=== PATIENT | male | born 1975 | race African-American/Black ===

== ENCOUNTER 2016-04-02 10:08 | Emergency (ER) | payer SELFPAY ==
[2016-04-02 11:17] VITALS: BP 117/89; TEMP 94.7; O2SAT 94
[2016-04-02] MEDS ORDERED: ONDANSETRON INJ 4 MG/2 ML VIAL IV ONE (11:25)
--- NOTE | 2016-04-02 11:28 | ED.PDOC ---
History of Present Illness - General Chief Complaint: Abdominal Pain Stated Complaint: abd pain Time Seen by Provider: 04/02/16 11:18 Source: patient Exam Limitations: no limitations - History of Present Illness Initial Comments: Patient presents with abdominal pain since yesterday. It is located in the umbilical area with no radiation. Constant but intermittent in intensity. Sudden onset. Has had two previous documented episodes this year but he says it occurs once per month. Worse with movement, better with rest. Has had multiple episodes of N/V/D. Diarrhea is non-bloody. No hx of abdominal surgeries. No other complaints. Timing/Duration: 24 hours Severity: severe Improving Factors: rest Worsening Factors: movement Associated Symptoms: nausea/vomiting Allergies/Adverse Reactions: Allergies NO KNOWN ALLERGY Allergy (Verified 11/26/15 13:14) Home Medications: Ambulatory Orders Ondansetron Tab [Zofran Tab] 4 mg PO Q6HR PRN #7 tab 04/02/16 Review of Systems - Review of Systems Constitutional: States: no symptoms reported EENTM: States: no symptoms reported Respiratory: States: no symptoms reported Cardiology: States: no symptoms reported Gastrointestinal/Abdominal: States: see HPI Genitourinary: States: no symptoms reported Musculoskeletal: States: no symptoms reported Skin: States: no symptoms reported Neurological: States: no symptoms reported Endocrine: States: no symptoms reported Hematologic/Lymphatic: States: no symptoms reported Past Medical History (General) - Patient Medical History Hx Seizures: No Hx Stroke: No Hx Dementia: No Hx Asthma: No Hx of COPD: No Hx Cardiac Disorders: No Hx Congestive Heart Failure: No Hx Pacemaker: No Hx Hypertension: No Hx Thyroid Disease: No Hx Diabetes: No Hx Gastroesophageal Reflux: No Hx Renal Disease: No Hx Cancer: No Hx of HIV: No Hx Hepatitis C: No Hx MRSA: No - Vaccination History Hx Tetanus, Diphtheria Vaccination: No Hx Influenza Vaccination: - unknown Hx Pneumococcal Vaccination: No Immunizations Up to Date: No - Social History Hx Tobacco Use: No Hx Chewing Tobacco Use: No Hx Alcohol Use: No Hx Substance Use: No Hx Substance Use Treatment: No Hx Depression: No Hx Physical Abuse: No Hx Emotional Abuse: No Hx Suspected Abuse: No - Female History Patient is a Female of Child Bearing Age (10 -59 yrs old): No Family Medical History - Family History Mother Family History: Unknown Physical Exam - Physical Exam General Appearance: Obvious distress Ears, Nose, Throat: normal ENT inspection Neck: non-tender, full range of motion, supple Respiratory: lungs clear Cardiovascular/Chest: normal peripheral pulses, regular rate, rhythm Gastrointestinal/Abdominal: normal bowel sounds, rebound, tenderness Back Exam: no CVA tenderness Extremity: normal range of motion Skin Exam: normal color Lymphatic: no adenopathy Progress - Progress Progress: 04/02/16 11:29 Zofran 8 mg IV x one. 04/02/16 15:13 CT showed possible enteritis. Patient's sx resolved with zofran. He was given NS one liter IV bolus. 04/02/16 15:14 04/02/16 17:24 Repeat NS one liter bolus x one. Patient discharged with zofran. Departure - Departure Clinical Impression: Gastroenteritis Disposition: Discharge to Home or Self Care Condition: Good Departure Forms: ED Discharge - Pt. Copy, Patient Portal Self Enrollment Instructions: DI for Abdominal Pain-Adult Diet: resume usual diet Activity: increase activity as tolerated Prescriptions: Ondansetron Tab [Zofran Tab] 4 mg PO Q6HR PRN #7 tab PRN Reason: Nausea Home Medications: Ambulatory Orders Ondansetron Tab [Zofran Tab] 4 mg PO Q6HR PRN #7 tab 04/02/16 Additional Instructions: Increase oral fluids. Take medications as prescribed. Follow up with your regular doctor if symptoms have not resolved in 48 hours.
--- NOTE | 2016-04-02 12:19 | RAD ---
EXAM DESCRIPTION: XR ABDOMEN 2 VIEWS SUPINE ERECT CLINICAL HISTORY: 41 y/o M, abdominal pain COMPARISON: 11/26/2015. TECHNIQUE: Supine and upright images of the abdomen. FINDINGS: There is no intraperitoneal free air. The bowel gas pattern is normal. There are no abnormal calcifications. The bones are unremarkable. IMPRESSION: Nonobstructing bowel gas pattern. Electronically signed by: Hipolito Mosqueda MD 04/02/2016 12:18
--- NOTE | 2016-04-02 14:22 | CT ---
EXAM DESCRIPTION: CT ABDOMEN PELVIS WITH IV CONTRAST CLINICAL HISTORY: 41 y/o M, abdominal pain COMPARISON: None TECHNIQUE: Axial CT images were obtained from the lung bases down to the pubic symphysis after the administration of IV contrast. Sagittal coronal reformats were performed. DLP [id number]. FINDINGS: The lung bases are clear. The liver, gallbladder, pancreas, spleen, and adrenal glands are unremarkable. Both kidneys appear unremarkable. There is no evidence of nephrolithiasis or hydronephrosis. There is no intraperitoneal free air or fluid. There is no lymphadenopathy. The stomach is unremarkable. There is mild thickening of the fluid filled small bowel. The appendix is normal. There is mild hyperemia of the sigmoid colon and rectum. The urinary bladder is unremarkable. There are no lytic or blastic bone lesions IMPRESSION: Mild thickening of the fluid filled small bowel, which is nonspecific but likely related to an enteritis. Normal appendix. Mild hyperemia of the distal sigmoid colon and rectum, likely due to mild inflammation. Electronically signed by: Hipolito Mosqueda MD 04/02/2016 14:20
[2016-04-02] MEDS ORDERED: SODIUM CHLORIDE 0.9% 1000ML 1,000 ML IVS ONE ×2 (14:52→15:41)
[2016-04-02] MEDS ORDERED: ONDANSETRON 4 MG TAB PO ONE (17:24)
== END 2016-04-02 17:49 | disposition home or self-care (01) ==
LOC: ER 10:08
DX: K52.9 Noninfective gastroenteritis and colitis, unspecified (principal)
CPT/HCPCS: 36415; 74010; 74177; 80053; 81001; 82150; 83690; 85025; G0479; J2405; J7030

== ENCOUNTER 2016-05-27 11:39 | Emergency (ER) | payer SELFPAY ==
[2016-05-27] MEDS ORDERED: ONDANSETRON INJ 4 MG/2 ML VIAL IV ONE (12:35)
[2016-05-27] MEDS ORDERED: HYDROmorphone HCL INJ 2 MG/ML VIAL IV ONE (12:35)
[2016-05-27] MEDS ORDERED: SODIUM CHLORIDE 0.9% 1000ML 1,000 ML IVS ONE (12:35)
--- NOTE | 2016-05-27 12:37 | ED.PDOC ---
History of Present Illness - General Chief Complaint: Abdominal Pain Stated Complaint: Abd pain with N/V/D Time Seen by Provider: 05/27/16 12:30 Information Source: patient, RN notes reviewed, Vital Signs reviewed, family Exam Limitations: no limitations - History of Present Illness Initial Comments: Patient comes in with severe abdominal pain with associated N/V/D. Reports that this happens about once a month. Denies eating anything unusual or sick contacts. Abdominal Pain Onset Location: generalized abdomen Pain Radiation: no radiation Quality: severe, cramping Timing/Duration: 7-24 hours Improving Factors: nothing Worsening Factors: movement Associated Symptoms: diarrhea, fever/chills, nausea/vomiting Review of Systems - Review of Systems Constitutional: States: chills. Denies: diaphoresis, fever, malaise EENTM: States: no symptoms reported Respiratory: States: no symptoms reported. Denies: cough, short of breath Cardiology: States: no symptoms reported. Denies: chest pain, palpitations, syncope Gastrointestinal/Abdominal: States: see HPI, abdominal pain, diarrhea, nausea, vomiting Genitourinary: States: no symptoms reported Musculoskeletal: States: no symptoms reported Skin: States: no symptoms reported Neurological: States: no symptoms reported Endocrine: States: no symptoms reported Past Medical History (General) - Patient Medical History Hx Seizures: No Hx Stroke: No Hx Dementia: No Hx Asthma: No Hx of COPD: No Hx Cardiac Disorders: No Hx Congestive Heart Failure: No Hx Pacemaker: No Hx Hypertension: No Hx Thyroid Disease: No Hx Diabetes: No Hx Gastroesophageal Reflux: No Hx Renal Disease: No Hx Cancer: No Hx of HIV: No Hx Hepatitis C: No Hx MRSA: No - Vaccination History Hx Tetanus, Diphtheria Vaccination: No Hx Influenza Vaccination: - unknown Hx Pneumococcal Vaccination: No - Social History Hx Tobacco Use: No Hx Chewing Tobacco Use: No Hx Alcohol Use: No Hx Substance Use: No Hx Substance Use Treatment: No Hx Depression: No Hx Physical Abuse: No Hx Emotional Abuse: No Hx Suspected Abuse: No Family Medical History - Family History Mother Family History: Unknown Physical Exam - Physical Exam General Appearance: Lethargic, Obvious distress, Ill Appearing, Well Developed, Well Groomed, Well Hydrated, Well Nourished, Other - Laying curled on side moaning Neck: non-tender, full range of motion, supple, normal inspection Respiratory: chest non-tender, lungs clear, normal breath sounds, no respiratory distress, no accessory muscle use Cardiovascular/Chest: regular rate, rhythm, no edema, no gallop, no JVD, no murmur Gastrointestinal/Abdominal: distended, guarding, rebound, tenderness Extremity: normal range of motion, non-tender, normal inspection, no pedal edema Neurologic: no motor/sensory deficits, oriented x 3 Skin Exam: normal color, warm/dry Lymphatic: no adenopathy Special Observations: C/O out of proportion Progress - Progress Progress: 05/27/16 13:43 Patient reports pain is much improved. Resting comfortably. 05/27/16 15:30 Discussed normal results with patient. Stressed importance of GI follow up. - Results/Orders Results/Orders: Laboratory Tests 05/27/16 12:35 WBC 16.9 H RBC 5.95 Hgb 16.8 Hct 51.5 MCV 86.6 MCH 28.3 MCHC 32.7 L RDW 14.5 Plt Count 362 MPV 7.6 Absolute Neuts (auto) 15.10 H Absolute Lymphs (auto) 0.70 L Absolute Monos (auto) 1.00 H Absolute Eos (auto) 0.10 Absolute Basos (auto) 0.00 Neutrophils % 89.3 H Lymphocytes % 4.2 L Monocytes % 5.9 Eosinophils % 0.3 L Basophils % 0.3 Sodium 137 Potassium 5.5 H Chloride 104 Carbon Dioxide 24 Anion Gap 14.5 BUN 22 H Creatinine 1.51 H BUN/Creatinine Ratio 14.6 Random Glucose 150 H Serum Osmolality 280.0 Calcium 10.1 Total Bilirubin 0.6 AST 25 ALT 38 Alkaline Phosphatase 63 Serum Total Protein 9.6 H Albumin 5.2 Globulin 4.4 H Albumin/Globulin Ratio 1.2 Amylase 81 Lipase 38 - EKG/XRAY/CT CT Ordered: Yes - abd/pelvis - sm hiatal hernia, o/w nl Departure - Departure Clinical Impression: Abdominal pain, Hiatal hernia, Nausea & vomiting Time of Disposition: 15:31 Disposition: Discharge to Home or Self Care Condition: Poor Departure Forms: ED Discharge - Pt. Copy, Patient Portal Self Enrollment Instructions: DI for Abdominal Pain-Adult Diet: bland diet Activity: increase activity as tolerated Referrals: Randy Harman MD [Consulting Staff] - 1-2 Weeks Prescriptions: Ondansetron [Zofran Odt] 4 mg PO Q6HR PRN #20 tab PRN Reason: Nausea/Vomiting Home Medications: Ambulatory Orders Ondansetron Tab [Zofran Tab] 4 mg PO Q6HR PRN #7 tab 04/02/16 Ondansetron [Zofran Odt] 4 mg PO Q6HR PRN #20 tab 05/27/16
--- NOTE | 2016-05-27 15:23 | CT ---
PROCEDURE: Abdomen/Pelvis w/Contrast HISTORY: Abd pain Indication: Same as above Comparison: None . Technique: CT of the abdomen and pelvis was done with intravenous contrast. Images were obtained from the lung base to the level of the pubic symphysis in axial plane, followed by orthogonal sagittal and coronal reconstruction. Oral contrast was not given for the study. The patient was injected with contrast intravenously, without any documented immediate adverse reactions. FINDINGS: Images through the lung bases do not show any focal infiltrates or pleural effusions. There is a six small hiatal hernia The liver, gallbladder, pancreas, spleen and the bilateral adrenal glands appear unremarkable. The bilateral kidneys enhance with contrast in a normal fashion. The urinary bladder is unremarkable . The bilateral ureters and the bilateral periureteral soft tissues and fat planes are unremarkable. The small bowel appears unremarkable, without any evidence of small bowel obstruction or bowel wall thickening. There is no CT evidence of acute appendicitis, pericecal inflammatory change or ileocecal mesenteric adenitis. The ileocecal junction appears unremarkable. There is no CT evidence of acute colonic diverticulitis or colitis or large bowel obstruction. The splenic and portal veins are of normal caliber, without any filling defects. There is no pathological lymphadenopathy in the retroperitoneum or in the pelvic region. There is no evidence of free fluid or free air in the abdomen or the pelvic region. There is no clinically significant abdominal aortic aneurysm. There is no clinically significant inguinal or ventral hernia. The visualized lumbar spine is unremarkable . The paravertebral soft tissues are unremarkable. The remainder of the pelvic structures are unremarkable. IMPRESSION: Small hiatal hernia. Otherwise unremarkable CT of the abdomen and pelvis. Location of Interpretation: [facility] Electronically signed by: Jorge Alvarado MD 05/27/2016 3:22 PM CDT
[2016-05-28 08:11] VITALS: BP 118/76; TEMP 97; O2SAT 97
== END 2016-05-27 15:48 | disposition home or self-care (01) ==
LOC: ER 11:39
DX: K44.9 Diaphragmatic hernia without obstruction or gangrene (principal); R11.2 Nausea with vomiting, unspecified
CPT/HCPCS: 36415; 74177; 80053; 82150; 83690; 85025; J1170; J2405; J7030

== ENCOUNTER 2016-06-25 19:24 | Emergency (ER) | payer SELFPAY ==
--- NOTE | 2016-06-25 20:10 | ED.PDOC ---
History of Present Illness - General Chief Complaint: Problem Stated Complaint: Left testicle pain and swelling Time Seen by Provider: 06/25/16 19:24 Source: patient Exam Limitations: no limitations - History of Present Illness Initial Comments: Francisco Thomas 41 y/o male with no chronic medical problem stated that his left testis has been swelled up for the last 5 days.Denies history of trauma,no feve /chills no dysuria ,no history of sti. Timing/Duration: other - 5 days Quality: moderate, sharpness, steady Onset Location: scrotal - left Radiation: groin - left Activites at Onset: none Prior abdominal problems: none Sexual intercourse history: single partner Improving Factors: nothing Worsening Factors: nothing Associated Symptoms: denies symptoms Allergies/Adverse Reactions: Allergies NO KNOWN ALLERGY Allergy (Verified 11/26/15 13:14) Home Medications: Ambulatory Orders Acetaminophen W/ Codeine [Tylenol W/ CODEINE #3] 1 ea PO TID PRN #14 06/25/16 Ciprofloxacin [Cipro] 500 mg PO BID #30 ml 06/25/16 NK 06/25/16 Review of Systems - Review of Systems Constitutional: States: no symptoms reported EENTM: States: no symptoms reported Respiratory: States: no symptoms reported Cardiology: States: no symptoms reported Gastrointestinal/Abdominal: States: no symptoms reported Genitourinary: States: see HPI Musculoskeletal: States: no symptoms reported Skin: States: no symptoms reported Neurological: States: no symptoms reported Endocrine: States: no symptoms reported Past Medical History (General) - Patient Medical History Hx Seizures: No Hx Stroke: No Hx Dementia: No Hx Asthma: No Hx of COPD: No Hx Cardiac Disorders: No Hx Congestive Heart Failure: No Hx Pacemaker: No Hx Hypertension: No Hx Thyroid Disease: No Hx Diabetes: No Hx Gastroesophageal Reflux: No Hx Renal Disease: No Hx Cancer: No Hx of HIV: No Hx Hepatitis C: No Hx MRSA: No Surgical History: no surgical history - Vaccination History Hx Tetanus, Diphtheria Vaccination: No - unknown Hx Influenza Vaccination: No Hx Pneumococcal Vaccination: No Immunizations Up to Date: Yes - Social History Hx Tobacco Use: No Hx Chewing Tobacco Use: No Hx Alcohol Use: No Hx Substance Use: No Hx Substance Use Treatment: No Hx Depression: No Feels Threatened In Home Enviroment: No Feels Threatened In a Relationship: No Hx Physical Abuse: No Hx Emotional Abuse: No Hx Suspected Abuse: No Family Medical History - Family History Mother Family History: No Known Living Status: Still Living Physical Exam - Physical Exam General Appearance: Alert, Comfortable, No apparent distress Eyes, Ears, Nose, Throat Exam: PERRL/EOMI, normal ENT inspection, TMs normal, pharynx normal Neck: non-tender, full range of motion, supple, normal inspection Cardiovascular/Respiratory: regular rate, rhythm, no M/R/G, normal peripheral pulses, no JVD Gastrointestinal/Abdominal: normal bowel sounds, non tender, soft, no organomegaly Male Genital Exam: normal genitalia, no hernia, scrotum tenderness (L), testicular tenderness (L) - no nodule noted Back Exam: normal inspection, no CVA tenderness Extremity: normal range of motion, non-tender, normal inspection, no pedal edema Neurologic: no motor/sensory deficits, alert, normal mood/affect, oriented x 3 Skin Exam: normal color, warm/dry Lymphatic: no adenopathy Progress - Results/Orders Results/Orders: Laboratory Results Urine Color Yellow (Yellow) 06/25/16 20:17 Urine Appearance Clear (Clear) 06/25/16 20:17 Urine pH 6.0 (4.5-7.8) 06/25/16 20:17 Ur Specific [place] 1.025 (1.005-1.030) 06/25/16 20:17 Urine Protein Negative mg/dL 06/25/16 20:17 Urine Glucose (UA) Negative mg/dL (Negative) 06/25/16 20:17 Urine Ketones Trace mg/dL (NEGATIVE) 06/25/16 20:17 Urine Blood Negative (Negative) 06/25/16 20:17 Urine Nitrite Negative 06/25/16 20:17 Urine Bilirubin Negative (NEGATIVE) 06/25/16 20:17 Urine Urobilinogen 1.0 mg/dL (0.2-1.0) 06/25/16 20:17 Ur Leukocyte Esterase Negative (Negative) 06/25/16 20:17 Urine RBC 0-1 /hpf 06/25/16 20:17 Urine WBC 1-3 /hpf 06/25/16 20:17 Ur Epithelial Cells 0-1 /hpf 06/25/16 20:17 Urine Bacteria Rare 06/25/16 20:17 Vital Signs - 24 hr 04/16/17 19:24 Temperature 99.4 F Pulse Rate [ 78 pulse ox] Respiratory 16 Rate Blood Pressure 137/90 [left upper arm ] O2 Sat by Pulse 98 Oximetry Departure - Departure Clinical Impression: Orchitis of left testicle Time of Disposition: 21:06 Disposition: Discharge to Home or Self Care Condition: Good Departure Forms: ED Discharge - Pt. Copy, Patient Portal Self Enrollment Prescriptions: Ciprofloxacin [Cipro] 500 mg PO BID #30 ml Acetaminophen W/ Codeine [Tylenol W/ CODEINE #3] 1 ea PO TID PRN #14 PRN Reason: Pain Home Medications: Ambulatory Orders Acetaminophen W/ Codeine [Tylenol W/ CODEINE #3] 1 ea PO TID PRN #14 06/25/16 Ciprofloxacin [Cipro] 500 mg PO BID #30 ml 06/25/16 NK 06/25/16 Additional Instructions: WEAR JOCK SUPPORT UNTIL BETTER;SIGN UP WITH PRIMARY MD TO FOLLOW UP IN ONE WEEK
[2016-06-25] MEDS ORDERED: levoFLOXacin 500 MG TAB PO ONE (20:13)
[2016-06-25] MEDS ORDERED: HYDROcodone 10MG/APAP 325MG 1 EA TAB PO ONE ×2 (21:11)
[2016-06-25 21:15] VITALS: TEMP 99.5; O2SAT 97
[2016-06-25 21:22] VITALS: BP 141/92
== END 2016-06-25 21:21 | disposition home or self-care (01) ==
LOC: ER 19:24
DX: N45.2 Orchitis (principal)

== ENCOUNTER 2018-06-25 13:35 | Emergency (ER) | payer SELFPAY ==
[2018-06-25] MEDS ORDERED: SODIUM CHLORIDE 0.9% 1000ML 1,000 ML IVS ONE ×2 (13:48→15:13)
[2018-06-25] MEDS ORDERED: ONDANSETRON INJ 4 MG/2 ML VIAL IV ONE (13:48)
[2018-06-25] MEDS ORDERED: SODIUM CHLORIDE 0.9% (FLUSH) 10 ML SYG IV PRN (13:48)
[2018-06-25] MEDS ORDERED: KETOROLAC TROMETHAMINE INJ 30 MG/ML VIAL IV ONE (13:48)
--- NOTE | 2018-06-25 13:58 | ED.PDOC ---
History of Present Illness - General Chief Complaint: GI Problem Stated Complaint: NAUSEA AND VOMITING Time Seen by Provider: 06/25/18 13:45 Information Source: patient Exam Limitations: no limitations - History of Present Illness Initial Comments: PT REPORTS ONSET OF CRAMPY ABDOMINAL PAIN ASSOCIATED WITH NAUSEA, VOMITING, AND DIARRHEA APPROXIMATELY 1 HOUR AFTER EATING SOME CHICKEN HE HAD AT HOME THIS MORNING. PT ALSO REPORTS CHILLS AND GENERALIZED WEAKNESS. Abdominal Pain Onset Location: generalized abdomen Quality: cramping, intermittent Timing/Duration: 4-6 hours Improving Factors: nothing Worsening Factors: nothing Associated Symptoms: diarrhea, fever/chills, fatigue, nausea/vomiting Review of Systems - Review of Systems Constitutional: States: chills. Denies: fever EENTM: Denies: nose congestion, throat pain Respiratory: Denies: cough, short of breath Cardiology: Denies: chest pain, palpitations Gastrointestinal/Abdominal: States: see HPI, abdominal pain, diarrhea, nausea, vomiting Genitourinary: Denies: dysuria, frequency Musculoskeletal: Denies: joint pain, joint swelling Skin: Denies: dryness, lesions Neurological: Denies: headache, numbness Endocrine: States: no symptoms reported Hematologic/Lymphatic: States: no symptoms reported Past Medical History (General) - Patient Medical History Hx Seizures: No Hx Stroke: No Hx Dementia: No Hx Asthma: No Hx of COPD: No Hx Cardiac Disorders: No Hx Congestive Heart Failure: No Hx Pacemaker: No Hx Hypertension: No Hx Thyroid Disease: No Hx Diabetes: No Hx Gastroesophageal Reflux: No Hx Renal Disease: No Hx Cancer: No Hx of HIV: No Hx Hepatitis C: No Hx MRSA: No - Vaccination History Hx Tetanus, Diphtheria Vaccination: No - unknown Hx Influenza Vaccination: No Hx Pneumococcal Vaccination: No - Social History Hx Tobacco Use: No Hx Chewing Tobacco Use: No Hx Alcohol Use: No Hx Substance Use: No Hx Substance Use Treatment: No Hx Depression: No Hx Physical Abuse: No Hx Emotional Abuse: No Hx Suspected Abuse: No Family Medical History - Family History Mother Family History: No Known Living Status: Still Living Physical Exam - Physical Exam General Appearance: Alert, Obvious distress, Well Developed, Well Groomed, Well Hydrated Eyes, Ears, Nose, Throat Exam: normal ENT inspection Neck: supple, normal inspection Respiratory: lungs clear, normal breath sounds, no respiratory distress Cardiovascular/Chest: regular rate, rhythm, no edema, no murmur Gastrointestinal/Abdominal: soft, tenderness - DIFFUSE Extremity: non-tender, normal inspection Neurologic: alert, normal mood/affect, oriented x 3 Skin Exam: normal color, warm/dry Progress - Progress Progress: 06/25/18 15:11 PT REPORTS SOME IMPROVEMENT IN PAIN AND NAUSEA AFTER ZOFRAN AND TORADOL. IV FLUIDS INFUSING. PT REQUESTING WATER. ICE CHIPS GIVEN TO START WITH. 06/25/18 15:55 PT FEELING MUCH BETTER. ABLE TO TOLERATE FLUIDS. LABS AND DIAGNOSTICS DISCUSSED. - Results/Orders Results/Orders: Laboratory Tests 06/25/18 06/25/18 14:10 14:10 WBC 12.9 H RBC 5.23 Hgb 14.9 Hct 46.4 MCV 88.8 MCH 28.5 MCHC 32.1 L RDW 14.0 Plt Count 361 MPV 8.0 Absolute Neuts (auto) 11.10 H Absolute Lymphs (auto) 0.60 L Absolute Monos (auto) 1.10 H Absolute Eos (auto) 0.10 Absolute Basos (auto) 0.00 Neutrophils % 85.9 H Lymphocytes % 4.6 L Monocytes % 8.7 Eosinophils % 0.6 L Basophils % 0.2 Sodium 138 Potassium 4.5 Chloride 108 Carbon Dioxide 24 Anion Gap 10.5 L BUN 21 H Creatinine 1.04 BUN/Creatinine Ratio 20.2 H Random Glucose 116 H Serum Osmolality 279.6 Calcium 9.0 Total Bilirubin 0.7 Direct Bilirubin < 0.1 Indirect Bilirubin 0.6 AST 26 ALT 33 Alkaline Phosphatase 54 Serum Total Protein 8.3 H Albumin 4.5 Amylase 77 Lipase 38 Departure - Departure Clinical Impression: Gastroenteritis, Nausea & vomiting, Abdominal tenderness, generalized Time of Disposition: 15:56 Disposition: Discharge to Home or Self Care Condition: Good Departure Forms: ED Discharge - Pt. Copy, Patient Portal Self Enrollment Instructions: DI for Abdominal Pain-Adult, Viral Gastroenteritis, Adult (DC) Diet: bland diet Referrals: [facility] [Provider Group] - 1-5 Days Prescriptions: Dicyclomine HCl [Bentyl] 20 mg PO Q6HR PRN #20 tab PRN Reason: Abdominal Cramping Promethazine Tab [Phenergan Tablet] 25 mg PO Q6H PRN #15 tab PRN Reason: Nausea/Vomiting Home Medications: Ambulatory Orders Dicyclomine HCl [Bentyl] 20 mg PO Q6HR PRN #20 tab 06/25/18 Promethazine Tab [Phenergan Tablet] 25 mg PO Q6H PRN #15 tab 06/25/18
[2018-06-25] MEDS ORDERED: HYOSCYAMINE SULFATE 0.5 MG/ML VIAL IV ONE (15:13)
[2018-06-25 16:07] VITALS: BP 133/64; TEMP 97; O2SAT 92
== END 2018-06-25 16:07 | disposition home or self-care (01) ==
LOC: ER 13:35
DX: K52.9 Noninfective gastroenteritis and colitis, unspecified (principal)
CPT/HCPCS: 36415; 80048; 80076; 82150; 83690; 85025; J1885; J2405; J7030

== ENCOUNTER 2020-02-02 05:51 | Emergency (ER) | payer SELFPAY ==
[2020-02-02] MEDS ORDERED: ONDANSETRON INJ 4 MG/2 ML VIAL IV ONE (06:21)
[2020-02-02] MEDS ORDERED: HYDROmorphone HCL INJ 2 MG/ML VIAL IV ONE (06:21)
[2020-02-02 06:23] VITALS: O2SAT 98
--- NOTE | 2020-02-02 06:25 | ED.PDOC ---
History of Present Illness - General Source: patient - History of Present Illness Initial Comments: CHEST, LEFT SHOULDER AND NECK PAIN, ONSET ABOUT 0030 THIS MORNING, W/ ASSOCIATED SOB, NO DIAPHORESIS, NO N/V. NO BENEFIT W/ ICYHOT, NO ORAL MEDS TRIED, NO HEALTH PROBLEMS, NEGATIVE FAMILY HISTORY. <Francisco Barajas - Last Filed: 02/02/20 06:57> <Da Jim - Last Filed: 02/02/20 10:07> - General Chief Complaint: Chest Pain/PR Time Seen by Provider: 02/02/20 06:20 - History of Present Illness Allergies/Adverse Reactions: Allergies NO KNOWN ALLERGY Allergy (Verified 11/26/15 13:14) Home Medications: Ambulatory Orders Apixaban [Eliquis] 5 mg PO BID #14 tab 02/02/20 predniSONE [Prednisone] 20 mg PO DAILY #5 tab 02/02/20 Review of Systems - Review of Systems Constitutional: States: no symptoms reported EENTM: States: no symptoms reported Respiratory: States: no symptoms reported Cardiology: States: no symptoms reported Gastrointestinal/Abdominal: States: no symptoms reported Genitourinary: States: no symptoms reported Musculoskeletal: States: no symptoms reported Skin: States: no symptoms reported Neurological: States: no symptoms reported Endocrine: States: no symptoms reported Hematologic/Lymphatic: States: no symptoms reported <Francisco Barajas - Last Filed: 02/02/20 06:57> Past Medical History (General) - Patient Medical History Hx Seizures: No Hx Stroke: No Hx Dementia: No Hx Asthma: No Hx of COPD: No Hx Cardiac Disorders: No Hx Congestive Heart Failure: No Hx Pacemaker: No Hx Hypertension: No Hx Thyroid Disease: No Hx Diabetes: No Hx Gastroesophageal Reflux: No Hx Renal Disease: No Hx Cancer: No Hx of HIV: No Hx Hepatitis C: No Hx MRSA: No - Vaccination History Hx Tetanus, Diphtheria Vaccination: No - unknown Hx Influenza Vaccination: No Hx Pneumococcal Vaccination: No - Social History Hx Tobacco Use: No Hx Chewing Tobacco Use: No Hx Alcohol Use: No Hx Substance Use: No Hx Substance Use Treatment: No Hx Depression: No Hx Physical Abuse: No Hx Emotional Abuse: No Hx Suspected Abuse: No <Francisco Barajas - Last Filed: 02/02/20 06:57> Family Medical History - Family History Mother Family History: No Known Living Status: Still Living <Francisco Barajas - Last Filed: 02/02/20 06:57> Physical Exam - Physical Exam General Appearance: Alert, Anxious, Obvious distress, Obese Eyes, Ears, Nose, Throat Exam: PERRL/EOMI, normal ENT inspection Neck: tender lateral, tender midline Respiratory: normal breath sounds, no respiratory distress, other - CHEST DIFFUSELY TENDER TO PALPATION Cardiovascular/Chest: normal peripheral pulses, regular rate, rhythm, no edema, no gallop, no JVD, no murmur Peripheral Pulses: radial,right: 2+, radial,left: 2+ Gastrointestinal/Abdominal: normal bowel sounds, non tender, tenderness - MILD DIFFUSE Rectal Exam: normal exam, normal rectal tone Extremity: normal range of motion, non-tender, pedal edema, slow capillary refill Neurologic: alert, normal mood/affect, oriented x 3 Skin Exam: normal color, warm/dry, cyanosis <Francisco Barajas - Last Filed: 02/02/20 06:57> Progress - Progress Progress: 02/02/20 10:02 The patient is a 45-year-old -[place] male presenting to the emergency room secondary to very atypical left-sided chest wall and trapezius muscle discomfort starting around midnight. 2 sets of cardiac enzymes are negative and EKG and telemetry are reassuring. This is much more consistent with myalgias than any cardiac origin. The patient did have a significantly elevated D-dimer and did have a CT angiogram of the chest. He did have a rapid coronavirus test that was negative. There is a high likelihood this is a false negative however given the presentation. I do believe it is very likely the patient does have coronavirus. He does need to isolate for at least the next 2 to 3 days and get retested 2 to 3 days from now. He is going to be put on prednisone 20 mg daily for the next 5 days for the myalgia and he can take Tylenol as needed as well. He needs to keep himself well-hydrated. Additionally secondary to the elevated D-dimer and the likelihood of coronavirus here, the patient is going to be placed on a week's worth of Eliquis. Again no evidence of blood clot was found on the scan today. ER warnings are given for any significant worsening. No evidence of any pulmonary disease either by symptomatology or by lab work or imaging at this time. da jim [id number] - Results/Orders Results/Orders: Laboratory Tests 02/02/20 02/02/20 02/02/20 06:25 06:33 09:00 WBC 6.7 RBC 4.16 L Hgb 12.0 L Hct 36.0 L MCV 86.5 MCH 29.0 MCHC 33.5 RDW 13.8 Plt Count 306 MPV 7.9 Absolute Neuts (auto) 4.80 Absolute Lymphs (auto) 1.30 Absolute Monos (auto) 0.50 Absolute Eos (auto) 0.20 Absolute Basos (auto) 0.00 Neutrophils % 70.8 Lymphocytes % 19.1 L Monocytes % 7.0 Eosinophils % 2.5 Basophils % 0.6 PT 9.3 INR < 1.00 PTT (SP) 27.4 D-Dimer, Quantitative 2180.0 H* Sodium 133 L Potassium 3.8 Chloride 103 Carbon Dioxide 23 Anion Gap 10.8 L BUN 19 H Creatinine 1.07 BUN/Creatinine Ratio 17.8 Random Glucose 131 H Serum Osmolality 270.4 L Calcium 8.1 L Magnesium 1.9 Creatine Kinase 661 H* 634 H* CK-MB (CK-2) 4.3 3.7 CK-MB (CK-2) % 0.65 Not Reportable Troponin I < 0.02 < 0.02 CTA of the chest is negative for acute pathology. EKG shows normal sinus rhythm at 53 bpm, correction that is sinus bradycardia at 53 bpm. Normal axis. Normal R wave progression. Borderline criteria for LVH. No ST segment or T wave changes indicative of acute ischemia. Normal QT interval. Chest x-ray shows no acute pathology. Rapid coronavirus test is negative. <Da Jim - Last Filed: 02/02/20 10:07> Departure <Francisco Barajas - Last Filed: 02/02/20 06:57> - Departure Diet: regular diet Activity: increase activity as tolerated <Da Jim - Last Filed: 02/02/20 10:07> - Departure Clinical Impression: Elevated d-dimer, Myalgia Chest pain Qualifiers: Chest pain type: chest pain on breathing Qualified Code(s): R07.1 - Chest pain on breathing Disposition: Discharge to Home or Self Care Condition: Fair Departure Forms: ED Discharge - Pt. Copy, Patient Portal Self Enrollment Instructions: DI for Chest Pain, Muscle and Bone Pain (DC) Prescriptions: Apixaban [Eliquis] 5 mg PO BID #14 tab predniSONE [Prednisone] 20 mg PO DAILY #5 tab Home Medications: Ambulatory Orders Apixaban [Eliquis] 5 mg PO BID #14 tab 02/02/20 predniSONE [Prednisone] 20 mg PO DAILY #5 tab 02/02/20 Additional Instructions: The patient is a 45-year-old -[place] male presenting to the emergency room secondary to very atypical left-sided chest wall and trapezius muscle discomfort starting around midnight. 2 sets of cardiac enzymes are negative and EKG and telemetry are reassuring. This is much more consistent with myalgias t [place] any cardiac origin. The patient did have a significantly elevated D-dimer and did have a CT angiogram of the chest. He did have a rapid coronavirus test that was negative. There is a high likelihood this is a false negative however given the presentation. I do believe it is very likely the patient does have coronavirus. He does need to isolate for at least the next 2 to 3 days and get retested 2 to 3 days from now. He is going to be put on prednisone 20 mg daily for the next 5 days for the myalgia and he can take Tylenol as needed as well. He needs to keep himself well-hydrated. Additionally secondary to the elevated D-dimer and the likelihood of coronavirus here, the patient is going to be placed on a week's worth of Eliquis. Again no evidence of blood clot was found on the scan today. ER warnings are given for any significant worsening. No evidence of any pulmonary disease either by symptomatology or by lab work or imaging at this time.
[2020-02-02] MEDS ORDERED: SODIUM CHLORIDE 0.9% 1000ML 1,000 ML IVS ONE (07:25)
--- NOTE | 2020-02-02 07:27 | RAD ---
EXAM: XR Chest, 2 Views CLINICAL HISTORY: The patient is 45 years old and is Male; CHEST PAIN TECHNIQUE: Two views of the chest. COMPARISON: No relevant prior studies available. FINDINGS: Lungs: Unremarkable. No consolidation. Pleural space: Unremarkable. No pneumothorax. Heart: Unremarkable. No cardiomegaly. Mediastinum: Unremarkable. Bones/joints: No acute fracture visualized. Upper abdomen: No free air in the visualized upper abdomen. IMPRESSION: No acute cardiopulmonary process identified. Electronically signed by: Malathi Sapp MD 02/02/2020 7:25 AM [facility]
[2020-02-02] MEDS ORDERED: SODIUM CHLORIDE 0.9% 1000ML 1,000 ML ONE (07:40)
[2020-02-02] MEDS ORDERED: predniSONE 20 MG TAB PO ONE (08:08)
[2020-02-02] MEDS ORDERED: KETOROLAC TROMETHAMINE INJ 30 MG/ML VIAL IV ONE (08:08)
--- NOTE | 2020-02-02 08:41 | CT ---
EXAM DESCRIPTION: CTA Chest CLINICAL HISTORY: shannon ddimer, chest pain COMPARISON: None available TECHNIQUE: Chest CTA was performed with IV contrast including MIP and/or Three-D reconstructed images. This exam was performed according to our departmental dose-optimization program, which includes automated exposure control, adjustment of the mA and/or kV according to patient size and/or use of iterative reconstruction technique. FINDINGS: No pulmonary embolus. No thoracic aortic aneurysm or dissection. Visualized portions of the thyroid and thoracic inlet are unremarkable. No mediastinal or hilar adenopathy. No pleural or pericardial effusion. No esophageal wall thickening. The central airways are clear. Mild dependent atelectasis in both lungs, no airspace consolidation or lung mass. Visualized portions of the upper abdomen are unremarkable for pulmonary arterial technique. No fracture or pneumothorax.Two small, benign-appearing lytic lesions laterally in the right sixth rib. No axillary adenopathy or chest wall lesion. IMPRESSION: No pulmonary embolus or additional intrathoracic abnormality to explain chest pain. Electronically signed by: Сергей Mcqueen MD 02/02/2020 8:40 AM INSTRUCTIONAL MANAGER
[2020-02-02 10:33] VITALS: BP 139/88; TEMP 97.8
== END 2020-02-02 10:33 | disposition home or self-care (01) ==
LOC: ER 05:51
DX: R07.1 Chest pain on breathing (principal); R79.89 Other specified abnormal findings of blood chemistry; M79.10 Myalgia, unspecified site; M25.512 Pain in left shoulder; R06.02 Shortness of breath; M54.2 Cervicalgia; R00.1 Bradycardia, unspecified; Z20.828 Contact with and (suspected) exposure to other viral communicable diseases
CPT/HCPCS: 36415; 71046; 71275; 80048; 82550; 82553; 84484; 85025; 85379; 85610; 85730; 87635; 93005; J1170; J1885; J2405; J7030; J7512

== ENCOUNTER 2020-02-03 07:40 | Emergency (ER) | payer SELFPAY ==
[2020-02-03 07:55] VITALS: TEMP 97.1
[2020-02-03] MEDS ORDERED: KETOROLAC TROMETHAMINE INJ 30 MG/ML VIAL IV ONE (08:13)
[2020-02-03] MEDS ORDERED: DEXAMETHASONE INJ 10 MG/ML VIAL IV ONE (08:13)
--- NOTE | 2020-02-03 08:33 | ED.PDOC ---
History of Present Illness - General Chief Complaint: Cardiovascular Problem Stated Complaint: chest wall pain Time Seen by Provider: 02/03/20 07:59 Source: patient, RN notes reviewed, Vital Signs reviewed, old records - from visit on 02/02/20 Exam Limitations: no limitations - History of Present Illness Initial Comments: Patient is a 45-year-old black male who presents with complaints of chest pain. He was seen here yesterday with similar complaints and had a complete work-up which was negative for cardiac enzymes, PE or Covid. Patient did have elevated D-dimer at that time. Patient states the pain is sharp and stabbing in nature. It is worse with deep inspiration or palpation. It is worse with movement. Nothing seems to make it better. The pain is constant. The intensity is severe. Patient was given a prescription for prednisone and Eliquis when he was here yesterday, but he did not fill it. Patient claims that his prescriptions were not called in, but in actuality he was given a prescription to fill himself. Patient states that he has shortness of breath with the chest pain. He denies any nausea, vomiting or diaphoresis. Patient denies any fevers or cough. Timing/Duration: getting worse, other - 2 days Severity/Quality: severe, sharp, stabbing Location: other - left chest wall. Chest Pain Radiation: no radiation Activities at Onset: none Prior Chest Pain/Cardiac Workup: other - ED Cardiac w/u 36 hrs ago Improving Factors: nothing Worsening Factors: movement, other - deep inspiration Nitro Today/Relief: no nitro taken today Aspirin Treatment Today: no aspirin today Associated Symptoms: shortness of breath Allergies/Adverse Reactions: Allergies NO KNOWN ALLERGY Allergy (Verified 02/03/20 07:55) Home Medications: Ambulatory Orders Apixaban [Eliquis] 5 mg PO BID #14 tab 02/02/20 predniSONE [Prednisone] 20 mg PO DAILY #5 tab 02/02/20 Methylprednisolone [Medrol Dose Rogelio] 4 mg PO DAILY 6 Days #21 tab 02/03/20 Tramadol HCl [Ultram] 50 mg PO Q6H #20 tab 02/03/20 Review of Systems - Review of Systems Constitutional: States: no symptoms reported, see HPI. Denies: chills, fever, malaise, weakness EENTM: States: no symptoms reported. Denies: eye pain, blurred vision, double vision Respiratory: States: see HPI, short of breath. Denies: cough, stridor, wheezing Cardiology: States: see HPI, chest pain. Denies: palpitations, syncope Gastrointestinal/Abdominal: States: no symptoms reported. Denies: abdominal pain, diarrhea, nausea, vomiting Genitourinary: States: no symptoms reported. Denies: dysuria, frequency Musculoskeletal: States: see HPI, other - chest wall pain. Denies: back pain, neck pain Skin: States: no symptoms reported. Denies: change in color, rash Neurological: States: no symptoms reported. Denies: tingling, tremors, weakness Endocrine: States: no symptoms reported. Denies: increased hunger, increased thirst, increased urine Hematologic/Lymphatic: States: no symptoms reported All other Systems: Reviewed and Negative, No Change from Baseline Past Medical History (General) - Patient Medical History Hx Seizures: No Hx Stroke: No Hx Dementia: No Hx Asthma: No Hx of COPD: No Hx Cardiac Disorders: No Hx Congestive Heart Failure: No Hx Pacemaker: No Hx Hypertension: No Hx Thyroid Disease: No Hx Diabetes: No Hx Gastroesophageal Reflux: No Hx Renal Disease: No Hx Cancer: No Hx of HIV: No Hx Hepatitis C: No Hx MRSA: No Surgical History: no surgical history - Vaccination History Hx Tetanus, Diphtheria Vaccination: No - unknown Hx Influenza Vaccination: No Hx Pneumococcal Vaccination: No - Social History Hx Tobacco Use: No Hx Chewing Tobacco Use: No Hx Alcohol Use: No Hx Substance Use: No Hx Substance Use Treatment: No Hx Depression: No Hx Physical Abuse: No Hx Emotional Abuse: No Hx Suspected Abuse: No Family Medical History - Family History Mother Family History: No Known Living Status: Still Living Hx Family Asthma: No Hx Family Congestive Heart Failure: No Hx Family Hypertension: Yes Hx Family Stroke: No Hx Cardiac Disease: No Hx Family Diabetes: Yes Hx Family Cancer: No Physical Exam - Physical Exam General Appearance: Alert, Anxious, Obvious distress, Well Developed, Well Groomed, Well Hydrated, Well Nourished Eyes, Ears, Nose, Throat Exam: PERRL/EOMI, normal ENT inspection, pharynx normal Neck: non-tender, full range of motion, supple Respiratory: lungs clear, normal breath sounds, no respiratory distress, no accessory muscle use, other - +TTP of left chest at border of left sternum. 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 02/03/20 11:15 Patient's lab work is improved since his visit yesterday. His D-dimer is markedly down and is now in the normal range. Patient's troponin is negative x2. His Covid test from yesterday was negative. Chest x-ray is unremarkable. I suspect this is costochondritis as he improved markedly after Decadron and Toradol. Plan on discharge home with a prescription for a Medrol Dosepak which she can start tomorrow and some Ultram for pain control. I have discussed this plan of care with the patient he voices understanding and agreement with plan of care. Buzz Brown M.D. #[id number] - Results/Orders Results/Orders: EKG performed 03 February 2020 at 0748 hrs.: Sinus bradycardia 53 bpm, normal axis deviation, no ST or T wave changes concerning for ischemia, otherwise normal EKG. Comparison EKG unavailable at this time. 02/03/20 08:00 EKG STAT 02/03/20 08:11 IV Care:Saline Lock per Protoc STAT Isolation:Airborne ONCE Telemetry STAT SARS-COV2 RT-PCR HIGH RISK Stat 02/03/20 08:15 EKG STAT Pulse Ox, Continuous Monitoring STAT 02/04/20 08:15 Pulse Ox, Continuous Monitoring STAT 02/05/20 08:15 Pulse Ox, Continuous Monitoring STAT Laboratory Results - last 24 hr 02/03/20 02/03/20 02/03/20 08:11 08:11 08:11 WBC 7.8 RBC 4.30 L Hgb 12.5 L Hct 36.7 L MCV 85.3 MCH 29.0 MCHC 34.1 RDW 14.0 Plt Count 310 MPV 8.1 Absolute Neuts (auto) 5.60 Absolute Lymphs (auto) 1.50 Absolute Monos (auto) 0.70 Absolute Eos (auto) 0.10 Absolute Basos (auto) 0.10 Neutrophils % 70.7 Lymphocytes % 18.8 L Monocytes % 8.7 Eosinophils % 1.0 Basophils % 0.8 PTT (SP) 26.3 D-Dimer, Quantitative 201.0 Sodium 135 Potassium 3.4 L Chloride 103 Carbon Dioxide 24 Anion Gap 11.4 L BUN 11 Creatinine 0.90 BUN/Creatinine Ratio 12.2 Random Glucose 138 H Serum Osmolality 271.7 L Calcium 8.2 L Magnesium 1.9 Total Bilirubin 0.6 AST 24 ALT 25 Alkaline Phosphatase 42 LD Total 153 Creatine Kinase 334 H* D Troponin I C-Reactive Protein 10.7 H* B-Natriuretic Peptide 49.2 Serum Total Protein 6.8 Albumin 3.5 Globulin 3.3 Albumin/Globulin Ratio 1.1 02/03/20 02/03/20 08:11 10:04 WBC RBC Hgb Hct MCV MCH MCHC RDW Plt Count MPV Absolute Neuts (auto) Absolute Lymphs (auto) Absolute Monos (auto) Absolute Eos (auto) Absolute Basos (auto) Neutrophils % Lymphocytes % Monocytes % Eosinophils % Basophils % PTT (SP) D-Dimer, Quantitative Sodium Potassium Chloride Carbon Dioxide Anion Gap BUN Creatinine BUN/Creatinine Ratio Random Glucose Serum Osmolality Calcium Magnesium Total Bilirubin AST ALT Alkaline Phosphatase LD Total Creatine Kinase Troponin I < 0.02 < 0.02 C-Reactive Protein B-Natriuretic Peptide Serum Total Protein Albumin Globulin Albumin/Globulin Ratio EXAM DESCRIPTION: Chest,1 View x-ray CLINICAL HISTORY: 45 years Male, chest pain COMPARISON: 02/02/2020 IMPRESSION: Heart size and pulmonary vascularity are within normal limits. There is no airspace consolidation, pleural effusion, or pneumothorax. No acute osseous abnormality. 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 Copy, Patient Portal Self Enrollment Instructions: DI for Chest Pain, Costochondritis (DC), Chest Pain That Is Not Caused by the Heart (DC), Pleuritic Chest Pain (DC) Diet: resume usual diet Activity: increase activity as tolerated Referrals: ELIA ROLLINS IV, [employer] B[employer] MAKER [Active Staff] - 1-5 Days Prescriptions: Methylprednisolone [Medrol Dose Rogelio] 4 mg PO DAILY 6 Days #21 tab Tramadol HCl [Ultram] 50 mg PO Q6H #20 tab Home Medications: Ambulatory Orders Apixaban [Eliquis] 5 mg PO BID #14 tab 02/02/20 predniSONE [Prednisone] 20 mg PO DAILY #5 tab 02/02/20 Methylprednisolone [Medrol Dose Rogelio] 4 mg PO DAILY 6 Days #21 tab 02/03/20 Tramadol HCl [Ultram] 50 mg PO Q6H #20 tab 02/03/20
--- NOTE | 2020-02-03 08:38 | RAD ---
EXAM DESCRIPTION: Chest,1 View x-ray CLINICAL HISTORY: 45 years Male, chest pain COMPARISON: 02/02/2020 IMPRESSION: Heart size and pulmonary vascularity are within normal limits. There is no airspace consolidation, pleural effusion, or pneumothorax. No acute osseous abnormality. 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
[2020-02-03 11:59] VITALS: BP 117/74; O2SAT 94
== END 2020-02-03 11:30 | disposition home or self-care (01) ==
LOC: ER 07:40
DX: M94.0 Chondrocostal junction syndrome [Tietze] (principal); R00.1 Bradycardia, unspecified; Z79.899 Other long term (current) drug therapy
CPT/HCPCS: 36415; 71045; 80053; 82550; 83615; 83735; 83880; 84484; 85025; 85379; 85730; 86140; 93005; J1100; J1885